=== PATIENT | male | born 1930 | race Caucasian/White ===

== ENCOUNTER 2018-11-10 14:26 | Inpatient (IN) | payer MEDICARE, MEDICAID ==
[~2018-11-10] VITALS: Ht 165.1 cm; Wt 63.5 kg
[~2018-11-10 14:26] MED LIST: ALLO100T PO; CALC0.5C7 PO; ELIQUIS PO; FEBU40TA PO; FURO20TA4 PO; IRON SULFATE PO; OMEP20CA10 PO; PIRO20CA2 PO; SIMV40TA5 PO; TAMS-11 PO; VALS320T2 PO
[2018-11-10 15:58] LABS: EOSINOPHILS % 0.9 % (0.0-5.0); HEMOGLOBIN. 13.4 g/dL (14.0-18.0); LYMPHOCYTES % 14.1 % (20.0-50.0); MEAN CORPUSCULAR HEMOGLOBIN 31.4 pg (28.0-32.0); MEAN CORPUSCULAR VOLUME 91.4 fL (80.0-94.0); MEAN PLATELET VOLUME 7.7 fl (7.4-10.4); MONOCYTES % 12.5 % (2.0-8.0); NEUTROPHILS % 71.5 % (40.0-76.0); PLATELET 243 x1000/uL (130-400); RED BLOOD CELL COUNT 4.27 mill/uL (4.7-6.1)
[2018-11-10 16:02] LABS: CHLORIDE 105 mEq/L (98-107)
[2018-11-10 16:06] LABS: ETHANOL BLOOD 102 mg/dL
[2018-11-10] MEDS ORDERED: ACETAMINOPHEN 500MG TABLET PO ONE (17:45)
[2018-11-11] VITALS (7 sets, daily range): BP systolic 110–191; BP diastolic 64–102
[2018-11-11] MEDS: OMEPRAZOLE 20MG CAPSULE EXTENDED RELEASE PO SCH (06:43)
[2018-11-11] MEDS: NITROGLYCERIN OINT 1GM/INCH UDPKT TD SCH ×3 (06:43→17:59)
[2018-11-11] MEDS: LOSARTAN POTASSIUM 100 MG TABLET PO SCH (08:10)
[2018-11-11] MEDS: TAMSULOSIN HCL 0.4MG SR CAPSULE PO SCH (08:15)
[2018-11-11 09:23] LABS: HEMATOCRIT 39.8 % (42.0-52.0); HEMOGLOBIN 13.5 g/dL (14.0-18.0); MEAN CORPUSCULAR HEMOGLOBIN 30.8 pg (28.0-32.0); PLATELET 245 x1000/uL (130-400); RED BLOOD CELL COUNT 4.38 mill/uL (4.7-6.1); RED CELL DISTRIBUTION WIDTH 15.9 % (11.6-14.6)
[2018-11-11] MEDS ORDERED: ACETAMINOPHEN 650MG SUPP PR PRN (17:45)
[2018-11-11] MEDS ORDERED: LORAZEPAM 2MG/ML CPJ IV PRN (17:45)
[2018-11-11] MEDS ORDERED: ONDANSETRON HCL 4MG/2ML INJ IV PRN (17:45)
[2018-11-11] MEDS ORDERED: ACETAMINOPHEN 325MG TABLET PO PRN (17:45)
[2018-11-11 21:12] LABS: PROTHROMBIN TIME 10.2 sec (9.1-11.1)
[2018-11-11] MEDS: ATORVASTATIN CALCIUM 10MG TABLET PO SCH (21:25)
[2018-11-11] MEDS: MVI, ADULT NO.1 10 ML, FOLIC ACID 1 MG, THIAMINE HCL 100 MG in DEXT 5%/0.45% NACL 1000M... IV SCH ×4 (21:26)
[2018-11-12] VITALS: BP 125/85
[2018-11-12 04:00] VITALS: BP 124/84
[2018-11-12] MEDS: NITROGLYCERIN OINT 1GM/INCH UDPKT TD SCH ×4 (05:28→17:37)
[2018-11-12] MEDS: OMEPRAZOLE 20MG CAPSULE EXTENDED RELEASE PO SCH (05:41)
[2018-11-12 07:31] LABS: HEMATOCRIT 38.6 % (42.0-52.0); MEAN CORPUSCULAR HEMOGLOBIN 30.9 pg (28.0-32.0); PLATELET 256 x1000/uL (130-400); RED BLOOD CELL COUNT 4.19 mill/uL (4.7-6.1); RED CELL DISTRIBUTION WIDTH 16.1 % (11.6-14.6)
[2018-11-12 07:47] LABS: CHLORIDE 106 mEq/L (98-107)
[2018-11-12 08:00] VITALS: BP 138/79
[2018-11-12 08:04] LABS: LDL CHOLESTEROL 116 mg/dL (5-100)
[2018-11-12 08:06] LABS: HDL CHOLESTEROL 44 mg/dL (40-59); T4 FREE 1.35 ng/dL (0.76-1.46); VITAMIN B12 SERUM 367 pg/mL (211-911)
[2018-11-12] MEDS: LOSARTAN POTASSIUM 100 MG TABLET PO SCH (08:46)
[2018-11-12] MEDS: TAMSULOSIN HCL 0.4MG SR CAPSULE PO SCH (08:47)
[2018-11-12 12:00] VITALS: BP 132/51
[2018-11-12] MEDS ORDERED: LACTULOSE 20G/30ML UDC PO SCH (13:45)
[2018-11-12 16:00] VITALS: BP 157/95
[2018-11-12 20:00] VITALS: BP_SYST 125; BP_SYST 129; BP_SYST 149; BP_DIAS 80; BP_DIAS 92; BP_DIAS 97
[2018-11-12] MEDS: ATORVASTATIN CALCIUM 10MG TABLET PO SCH (21:14)
[2018-11-12] MEDS: MVI, ADULT NO.1 10 ML, FOLIC ACID 1 MG, THIAMINE HCL 100 MG in DEXT 5%/0.45% NACL 1000M... IV SCH ×4 (21:15)
[2018-11-13] VITALS: BP 132/96
[2018-11-13] MEDS: NITROGLYCERIN OINT 1GM/INCH UDPKT TD SCH ×3 (00:30→12:01)
[2018-11-13 04:00] VITALS: BP 123/84
[2018-11-13] MEDS: OMEPRAZOLE 20MG CAPSULE EXTENDED RELEASE PO SCH (05:54)
[2018-11-13 06:54] LABS: HEMATOCRIT 38.3 % (42.0-52.0); HEMOGLOBIN 12.8 g/dL (14.0-18.0); MEAN CORPUSCULAR VOLUME 92.9 fL (80.0-94.0); PLATELET 261 x1000/uL (130-400); RED BLOOD CELL COUNT 4.13 mill/uL (4.7-6.1); RED CELL DISTRIBUTION WIDTH 15.6 % (11.6-14.6)
[2018-11-13 08:00] VITALS: BP 169/88
[2018-11-13] MEDS: LOSARTAN POTASSIUM 100 MG TABLET PO SCH (08:18)
[2018-11-13] MEDS: TAMSULOSIN HCL 0.4MG SR CAPSULE PO SCH (08:18)
[2018-11-13 12:03] VITALS: BP 151/87
[2018-11-13 15:40] VITALS: BP 151/87
[2018-11-13 16:03] VITALS: BP 166/81
[2018-11-14] MEDS ORDERED: FAMOTIDINE 20MG TABLET PO SCH (09:00)
== END 2018-11-13 17:10 | disposition home or self-care (01) | DRG 65 ==
LOC: ER 14:56 → 8WST 16:55 → EDBEDREQTM 16:59 → EDBEDREQ 16:59 → ENRESERV 22:42 → 8WST 11-12 18:08
PROVIDERS: ADMIT Internal Medicine; ATTEND Internal Medicine
DX: I63.9 Cerebral infarction, unspecified (principal); K86.1 Other chronic pancreatitis; N17.9 Acute kidney failure, unspecified; E72.20 Disorder of urea cycle metabolism, unspecified; E44.1 Mild protein-calorie malnutrition; F10.10 Alcohol abuse, uncomplicated; I48.91 Unspecified atrial fibrillation; E86.0 Dehydration; H54.61 Unqualified visual loss, right eye, normal vision left eye; D64.9 Anemia, unspecified; E78.5 Hyperlipidemia, unspecified; G62.9 Polyneuropathy, unspecified; I11.9 Hypertensive heart disease without heart failure; M25.78 Osteophyte, vertebrae; M13.861 Other specified arthritis, right knee; M48.02 Spinal stenosis, cervical region; M47.892 Other spondylosis, cervical region; W19.XXXA Unspecified fall, initial encounter; M48.04 Spinal stenosis, thoracic region; N40.0 Benign prostatic hyperplasia without lower urinary tract symptoms; R26.2 Difficulty in walking, not elsewhere classified; Y90.5 Blood alcohol level of 100-119 mg/100 ml; Z86.73 Personal history of transient ischemic attack (TIA), and cerebral infarction without residual deficits; Z91.19 Patient's noncompliance with other medical treatment and regimen; Y93.89 Activity, other specified; Y92.89 Other specified places as the place of occurrence of the external cause; Y99.8 Other external cause status; Z79.899 Other long term (current) drug therapy
CPT/HCPCS: 36415; 70551; 71045; 73560; 80048; 80061; 82140; 82607; 82962; 83036; 83880; 84153; 84439; 84443; 84484; 84550; 85027; 93005; 93306; 93880; 93970; 97116; 97162; 99285; G0482; J3411; J3490; G0103

== ENCOUNTER 2019-10-25 20:45 | Inpatient (IN) | payer MEDICARE, MEDICAID ==
[~2019-10-25] VITALS: Ht 165.1 cm; Wt 63.0 kg
[~2019-10-25 20:45] MED LIST changes: -ELIQUIS PO; -OMEP20CA10 PO; +OMEP20CA5 PO
[2019-10-25 23:06] LABS: CLARITY URINE CLEAR (CLEAR); COLOR URINE YELLOW (YELLOW); KETONES URINE NEGATIVE (NEGATIVE); LEUKOCYTE ESTERASE URINE NEGATIVE (NEGATIVE); NITRITE URINE NEGATIVE (NEGATIVE); OCCULT BLOOD URINE NEGATIVE (NEGATIVE); PH URINE 5.5 (4.5-8.0); PROTEIN URINE 2+ (NEGATIVE); SPECIFIC GRAVITY URINE 1.003 (1.005-1.030); UROBILINOGEN URINE 0.2 E.U./dL (0.2-1.0)
[2019-10-25 23:21] LABS: BASOPHILS % 1.1 % (0.0-2.0); EOSINOPHILS % 3.6 % (0.0-5.0); HEMOGLOBIN. 13.3 g/dL (14.0-18.0); LYMPHOCYTES % 23.3 % (20.0-50.0); MEAN CORPUSCULAR HEMOGLOBIN 32.1 pg (28.0-32.0); MEAN CORPUSCULAR VOLUME 94.2 fL (80.0-94.0); MEAN PLATELET VOLUME 8.1 fl (7.4-10.4); MONOCYTES % 9.4 % (2.0-8.0); NEUTROPHILS % 62.6 % (40.0-76.0); PLATELET 225 x1000/uL (130-400); RED BLOOD CELL COUNT 4.14 mill/uL (4.7-6.1); RED CELL DISTRIBUTION WIDTH 14.6 % (11.6-14.6)
[2019-10-25 23:23] LABS: CHLORIDE 106 mEq/L (98-107)
[2019-10-25] MEDS ORDERED: ASPIRIN 325MG EC TABLET PO ONE (23:45)
[2019-10-26] VITALS (8 sets, daily range): BP systolic 128–182; BP diastolic 59–91
[2019-10-26 08:39] LABS: BASOPHILS % 1.3 % (0.0-2.0); EOSINOPHILS % 4.8 % (0.0-5.0); HEMATOCRIT. 39.6 % (42.0-52.0); HEMOGLOBIN. 13.5 g/dL (14.0-18.0); MEAN CORPUSCULAR VOLUME 93.6 fL (80.0-94.0); MEAN PLATELET VOLUME 8.5 fl (7.4-10.4); MONOCYTES % 10.5 % (2.0-8.0); NEUTROPHILS % 63.4 % (40.0-76.0); PLATELET 235 x1000/uL (130-400); RED BLOOD CELL COUNT 4.23 mill/uL (4.7-6.1); RED CELL DISTRIBUTION WIDTH 14.6 % (11.6-14.6)
[2019-10-26 08:46] LABS: CHLORIDE 111 mEq/L (98-107)
[2019-10-26] MEDS: ENOXAPARIN 40MG/0.4ML SYR SUBCUT SCH (08:56)
[2019-10-26] MEDS: TAMSULOSIN HCL 0.4MG SR CAPSULE PO SCH (08:56)
[2019-10-26] MEDS ORDERED: ACETAMINOPHEN 325MG TABLET PO PRN (10:00)
[2019-10-26] MEDS ORDERED: ONDANSETRON HCL 4MG/2ML INJ IV PRN (10:00)
[2019-10-26] MEDS: CLONIDINE 0.1MG TABLET PO SCH ×3 (11:21→21:00)
[2019-10-26 11:56] LABS: HEPATITIS B SURFACE ANTIGEN NEGATIVE
[2019-10-26 12:26] LABS: HEPATITIS A AB IGM NEGATIVE (NEGATIVE)
[2019-10-26] MEDS ORDERED: CLONIDINE 0.1MG TABLET PO SCH (14:00)
[2019-10-26] MEDS: AMLODIPINE 5MG TABLET PO SCH (21:00)
[2019-10-27] VITALS (8 sets, daily range): BP systolic 104–167; BP diastolic 47–79
[2019-10-27] MEDS: CLONIDINE 0.1MG TABLET PO SCH (05:11)
[2019-10-27 07:11] LABS: BASOPHILS % 2.2 % (0.0-2.0); EOSINOPHILS % 4.8 % (0.0-5.0); HEMATOCRIT. 35.4 % (42.0-52.0); HEMOGLOBIN. 12.2 g/dL (14.0-18.0); MEAN CORPUSCULAR HEMOGLOBIN 32.4 pg (28.0-32.0); MEAN CORPUSCULAR VOLUME 94.1 fL (80.0-94.0); MEAN PLATELET VOLUME 8.7 fl (7.4-10.4); PLATELET 237 x1000/uL (130-400); RED BLOOD CELL COUNT 3.76 mill/uL (4.7-6.1); RED CELL DISTRIBUTION WIDTH 14.9 % (11.6-14.6)
[2019-10-27] MEDS ORDERED: ASPIRIN 81MG TABLET PO SCH (09:00)
[2019-10-27] MEDS: AMLODIPINE 5MG TABLET PO SCH ×2 (09:07→20:59)
[2019-10-27] MEDS: TAMSULOSIN HCL 0.4MG SR CAPSULE PO SCH (09:08)
[2019-10-27] MEDS: ENOXAPARIN 40MG/0.4ML SYR SUBCUT SCH (09:08)
[2019-10-27] MEDS: HYDRALAZINE HCL 50MG TABLET PO SCH ×2 (12:00→21:00)
[2019-10-27] MEDS: SODIUM CHLORIDE 0.45% 1,000 ML IV SCH (13:24)
[2019-10-27 16:47] LABS: T4 FREE 1.11 ng/dL (0.76-1.46)
[2019-10-28 00:25] VITALS: BP 144/69
[2019-10-28 04:00] VITALS: BP 143/65
[2019-10-28] MEDS: SODIUM CHLORIDE 0.45% 1,000 ML IV SCH ×2 (04:51→13:40)
[2019-10-28 07:42] LABS: BASOPHILS % 1.2 % (0.0-2.0); EOSINOPHILS % 5.5 % (0.0-5.0); HEMATOCRIT. 37.1 % (42.0-52.0); HEMOGLOBIN. 12.8 g/dL (14.0-18.0); LYMPHOCYTES % 23.3 % (20.0-50.0); MEAN CORPUSCULAR HEMOGLOBIN 32.2 pg (28.0-32.0); MEAN CORPUSCULAR VOLUME 93.7 fL (80.0-94.0); MEAN PLATELET VOLUME 8.7 fl (7.4-10.4); MONOCYTES % 10.6 % (2.0-8.0); NEUTROPHILS % 59.4 % (40.0-76.0); PLATELET 240 x1000/uL (130-400); RED BLOOD CELL COUNT 3.96 mill/uL (4.7-6.1); RED CELL DISTRIBUTION WIDTH 14.3 % (11.6-14.6)
[2019-10-28 08:28] VITALS: BP 185/91
[2019-10-28] MEDS: TAMSULOSIN HCL 0.4MG SR CAPSULE PO SCH (08:36)
[2019-10-28] MEDS: HYDRALAZINE HCL 50MG TABLET PO SCH ×2 (08:36→21:12)
[2019-10-28] MEDS: AMLODIPINE 5MG TABLET PO SCH ×2 (08:36→21:12)
[2019-10-28] MEDS ORDERED: ENOXAPARIN 30MG/0.3ML SYR SUBCUT SCH (09:00)
[2019-10-28 12:32] VITALS: BP_SYST 128; BP_SYST 185; BP_DIAS 55; BP_DIAS 91
[2019-10-28] MEDS ORDERED: APIX2.5T PO (15:02)
[2019-10-28 16:26] VITALS: BP 116/53
[2019-10-28 18:13] VITALS: BP 128/55
== END 2019-10-28 21:41 | disposition short-term general hospital (02) | DRG 73 ==
LOC: ER 20:45 → ENRESERV 10-26 01:57 → 6WST 10-26 03:50
PROVIDERS: ADMIT Internal Medicine; ATTEND Internal Medicine
DX: G90.8 Other disorders of autonomic nervous system (principal); N17.0 Acute kidney failure with tubular necrosis; E44.0 Moderate protein-calorie malnutrition; I48.21 Permanent atrial fibrillation; K86.1 Other chronic pancreatitis; I69.351 Hemiplegia and hemiparesis following cerebral infarction affecting right dominant side; D64.9 Anemia, unspecified; E78.5 Hyperlipidemia, unspecified; F10.229 Alcohol dependence with intoxication, unspecified; I16.0 Hypertensive urgency; I12.9 Hypertensive chronic kidney disease with stage 1 through stage 4 chronic kidney disease, or unspecified chronic kidney disease; I49.5 Sick sinus syndrome; N40.0 Benign prostatic hyperplasia without lower urinary tract symptoms; E78.00 Pure hypercholesterolemia, unspecified; H54.61 Unqualified visual loss, right eye, normal vision left eye; N18.9 Chronic kidney disease, unspecified; R74.0 Nonspecific elevation of levels of transaminase and lactic acid dehydrogenase [LDH]; R29.6 Repeated falls; Z79.82 Long term (current) use of aspirin; Z79.899 Other long term (current) drug therapy; Z68.23 Body mass index [BMI] 23.0-23.9, adult
CPT/HCPCS: 36415; 71045; 74176; 76700; 80048; 80053; 80076; 81003; 83735; 84439; 84443; 84480; 84484; 85025; 86705; 86709; 86803; 87340; 93005; 93306; 93880; 97162; 99285; J1650

== ENCOUNTER 2019-11-22 17:58 | Inpatient (IN) | payer MEDICARE, MEDICAID ==
[~2019-11-22] VITALS: Ht 162.6 cm; Wt 65.8 kg
[~2019-11-22 17:58] MED LIST changes: -ALLO100T PO; +APIX2.5T PO; -CALC0.5C7 PO; -FEBU40TA PO; -IRON SULFATE PO; -OMEP20CA5 PO; -PIRO20CA2 PO; +SIMV-46 PO; -SIMV40TA5 PO
[2019-11-22] MEDS ORDERED: OXYCODONE HCL/ACETAMINOPHEN 5/325MG TABLET PO ONE (21:15)
[2019-11-22 22:59] LABS: BASOPHILS % 0.8 % (0.0-2.0); EOSINOPHILS % 0.4 % (0.0-5.0); HEMATOCRIT. 35.5 % (42.0-52.0); HEMOGLOBIN. 12.4 g/dL (14.0-18.0); LYMPHOCYTES % 7.6 % (20.0-50.0); MEAN CORPUSCULAR HEMOGLOBIN 32.6 pg (28.0-32.0); MEAN CORPUSCULAR VOLUME 93.2 fL (80.0-94.0); MEAN PLATELET VOLUME 8.3 fl (7.4-10.4); MONOCYTES % 6.1 % (2.0-8.0); NEUTROPHILS % 85.1 % (40.0-76.0); PLATELET 176 x1000/uL (130-400); RED BLOOD CELL COUNT 3.81 mill/uL (4.7-6.1); RED CELL DISTRIBUTION WIDTH 14.5 % (11.6-14.6)
[2019-11-22] MEDS ORDERED: MORPHINE SULFATE 2 MG/ML CPJ (NOT FOR IM USE) IV ONE (23:15)
[2019-11-23] MEDS ORDERED: MORPHINE SULFATE 2 MG/ML CPJ (NOT FOR IM USE) IV ONE (02:30)
[2019-11-23 08:15] VITALS: BP 186/82
[2019-11-23 09:00] VITALS: BP 186/82
[2019-11-23] MEDS ORDERED: NA PHOS,M-B/NA PHOS,DI-BA ENEMA 118ML PR PRN (11:15)
[2019-11-23] MEDS ORDERED: ACETAMINOPHEN 325MG TABLET PO PRN (11:15)
[2019-11-23] MEDS ORDERED: MAGNESIUM/ALUMINUM HYDROXIDE/SIMETHICONE 30ML UDC PO PRN (11:15)
[2019-11-23] MEDS ORDERED: GUAIFENESIN 200MG/10ML SUGAR FREE UDC PO PRN (11:15)
[2019-11-23] MEDS ORDERED: LORAZEPAM 0.5MG TABLET PO PRN (11:15)
[2019-11-23] MEDS ORDERED: DIPHENHYDRAMINE 50MG/ML VIAL IV PRN (11:15)
[2019-11-23] MEDS ORDERED: ONDANSETRON HCL 4MG/2ML INJ IV PRN (11:15)
[2019-11-23] MEDS ORDERED: IPRATROPIUM/ALBUTEROL 0.5-3(2.5)MG/3ML NEB NEB PRN (11:15)
[2019-11-23] MEDS ORDERED: ACETAMINOPHEN 650MG SUPP PR PRN (11:15)
[2019-11-23] MEDS ORDERED: DOCUSATE SODIUM 100MG CAPSULE PO PRN (11:15)
[2019-11-23] MEDS: AMLODIPINE 5MG TABLET PO SCH (11:37)
[2019-11-23 12:00] VITALS: BP 157/96
[2019-11-23 13:38] LABS: PROTHROMBIN TIME 10.7 sec (9.6-11.0)
[2019-11-23] MEDS: CEFTRIAXONE 1 G PREMIX 50 ML IV SCH (13:39)
[2019-11-23] MEDS ORDERED: HYDROCODONE/ACETAMINOPHEN 5/325MG TABLET PO PRN (14:45)
[2019-11-23] MEDS ORDERED: MORPHINE SULFATE 2 MG/ML CPJ (NOT FOR IM USE) IV PRN (14:45)
[2019-11-23] MEDS ORDERED: REGADENOSON 0.4 MG/5 ML IV NR (15:30)
[2019-11-23 16:00] VITALS: BP 150/78
[2019-11-23] MEDS ORDERED: ENOXAPARIN 80MG/0.8ML SYR SUBCUT SCH (16:00)
[2019-11-23 16:01] LABS: HEMATOCRIT 33.3 % (42.0-52.0); HEMOGLOBIN 11.4 g/dL (14.0-18.0); MEAN CORPUSCULAR HEMOGLOBIN 31.7 pg (28.0-32.0); MEAN CORPUSCULAR VOLUME 92.4 fL (80.0-94.0); PLATELET 169 x1000/uL (130-400); RED CELL DISTRIBUTION WIDTH 14.3 % (11.6-14.6)
[2019-11-23 16:05] LABS: CHLORIDE 104 mEq/L (98-107)
[2019-11-23 16:12] LABS: LDL CHOLESTEROL 83 mg/dL (5-100)
[2019-11-23 16:13] LABS: HDL CHOLESTEROL 54 mg/dL (40-59)
[2019-11-23 16:14] LABS: CREATINE KINASE 131 IU/L (39-308)
[2019-11-23 16:17] LABS: CREATINE KINASE MB FRACTION 1.5 ng/mL (0.5-3.6)
[2019-11-23 16:29] LABS: CLARITY URINE CLEAR (CLEAR); COLOR URINE YELLOW (YELLOW); KETONES URINE NEGATIVE (NEGATIVE); LEUKOCYTE ESTERASE URINE NEGATIVE (NEGATIVE); NITRITE URINE NEGATIVE (NEGATIVE); OCCULT BLOOD URINE NEGATIVE (NEGATIVE); PH URINE 6.5 (4.5-8.0); PROTEIN URINE 2+ (NEGATIVE); UROBILINOGEN URINE 0.2 E.U./dL (0.2-1.0)
[2019-11-23] MEDS: HYDROCODONE/ACETAMINOPHEN 5/325MG TABLET PO PRN ×2 (16:39→23:21)
[2019-11-23 17:02] LABS: *AMPHETAMINES SCREEN URINE NEGATIVE (NEGATIVE); *BENZODIAZEPINES SCREEN URINE NEGATIVE (NEGATIVE); *COCAINE SCREEN URINE NEGATIVE (NEGATIVE); CANNABINOID URINE SCREEN NEGATIVE (NEGATIVE); METHADONE URINE SCREEN NEGATIVE (NEGATIVE); OPIATES URINE SCREEN NEGATIVE (NEGATIVE); PHENCYCLIDINE URINE SCREEN NEGATIVE (NEGATIVE)
[2019-11-23 17:03] LABS: *BARBITURATES SCREEN URINE NEGATIVE (NEGATIVE)
[2019-11-23 20:00] VITALS: BP 134/74
[2019-11-23 23:48] LABS: CREATINE KINASE MB FRACTION 1.2 ng/mL (0.5-3.6)
[2019-11-24] VITALS: BP 156/82
[2019-11-24 04:00] VITALS: BP 155/68
[2019-11-24 06:41] LABS: BASOPHILS % 1.1 % (0.0-2.0); EOSINOPHILS % 2.5 % (0.0-5.0); HEMATOCRIT. 31.3 % (42.0-52.0); HEMOGLOBIN. 10.8 g/dL (14.0-18.0); LYMPHOCYTES % 14.1 % (20.0-50.0); MEAN CORPUSCULAR HEMOGLOBIN 32.1 pg (28.0-32.0); MEAN CORPUSCULAR VOLUME 92.9 fL (80.0-94.0); MONOCYTES % 10.6 % (2.0-8.0); NEUTROPHILS % 71.7 % (40.0-76.0); PLATELET 159 x1000/uL (130-400); RED BLOOD CELL COUNT 3.37 mill/uL (4.7-6.1); RED CELL DISTRIBUTION WIDTH 14.7 % (11.6-14.6)
[2019-11-24 08:00] VITALS: BP 139/79
[2019-11-24 08:03] LABS: CHLORIDE 106 mEq/L (98-107)
[2019-11-24 08:14] LABS: T4 FREE 1.44 ng/dL (0.76-1.46)
[2019-11-24] MEDS: AMLODIPINE 5MG TABLET PO SCH (08:37)
[2019-11-24] MEDS ORDERED: REGADENOSON 0.4 MG/5 ML IV ONE (11:21)
[2019-11-24 12:00] VITALS: BP 152/80
[2019-11-24] MEDS: CEFTRIAXONE 1 G PREMIX 50 ML IV SCH (12:34)
[2019-11-24] MEDS: HYDROCODONE/ACETAMINOPHEN 5/325MG TABLET PO PRN ×2 (12:35→18:05)
[2019-11-24 16:00] VITALS: BP 139/77
[2019-11-24 20:00] VITALS: BP 158/79
[2019-11-25] VITALS: BP 165/77
[2019-11-25] MEDS: CLONIDINE 0.1MG TABLET PO PRN (03:08)
[2019-11-25 04:00] VITALS: BP 153/67
[2019-11-25 06:42] LABS: BASOPHILS % 0.8 % (0.0-2.0); EOSINOPHILS % 1.2 % (0.0-5.0); HEMATOCRIT. 31.8 % (42.0-52.0); HEMOGLOBIN. 10.9 g/dL (14.0-18.0); LYMPHOCYTES % 9.4 % (20.0-50.0); MEAN CORPUSCULAR HEMOGLOBIN 31.9 pg (28.0-32.0); MEAN CORPUSCULAR VOLUME 93.1 fL (80.0-94.0); MEAN PLATELET VOLUME 8.8 fl (7.4-10.4); MONOCYTES % 10.8 % (2.0-8.0); NEUTROPHILS % 77.8 % (40.0-76.0); PLATELET 158 x1000/uL (130-400); RED BLOOD CELL COUNT 3.41 mill/uL (4.7-6.1); RED CELL DISTRIBUTION WIDTH 14.7 % (11.6-14.6)
[2019-11-25 06:57] LABS: VITAMIN B12 SERUM 374 pg/mL (211-911)
[2019-11-25] MEDS: HYDROCODONE/ACETAMINOPHEN 5/325MG TABLET PO PRN ×3 (07:57→21:01)
[2019-11-25 08:00] VITALS: BP 119/57
[2019-11-25] MEDS: AMLODIPINE 5MG TABLET PO SCH (08:00)
[2019-11-25 12:00] VITALS: BP 119/57
[2019-11-25] MEDS: CEFTRIAXONE 1 G PREMIX 50 ML IV SCH (13:10)
[2019-11-25 16:00] VITALS: BP 130/70
[2019-11-25 20:00] VITALS: BP 120/68
[2019-11-25] MEDS ORDERED: CHLORHEXIDINE GLUCONATE 4% EXTERNAL USE TOP ONE (20:00)
[2019-11-26] VITALS: BP 126/66
[2019-11-26 04:00] VITALS: BP 137/65
[2019-11-26] MEDS: DEXT 5%/0.45% NACL 1000ML 1,000 ML IV SCH (05:47)
[2019-11-26] MEDS: HYDROCODONE/ACETAMINOPHEN 5/325MG TABLET PO PRN ×3 (05:56→23:57)
[2019-11-26 07:04] LABS: HEMATOCRIT 31.2 % (42.0-52.0); HEMOGLOBIN 10.5 g/dL (14.0-18.0); MEAN CORPUSCULAR HEMOGLOBIN 31.4 pg (28.0-32.0); MEAN CORPUSCULAR VOLUME 93.6 fL (80.0-94.0); PLATELET 174 x1000/uL (130-400); RED BLOOD CELL COUNT 3.33 mill/uL (4.7-6.1); RED CELL DISTRIBUTION WIDTH 14.8 % (11.6-14.6)
[2019-11-26] MEDS ORDERED: NEOSTIGMINE METHYLSULFATE 1MG/ML 10 ML VIAL ONE (07:46)
[2019-11-26] MEDS ORDERED: FENTANYL CITRATE/PF 50MCG/ML 2ML VIAL ONE ×3 (07:46→08:47)
[2019-11-26] MEDS ORDERED: ROCURONIUM BROMIDE 10MG/ML VIAL 5ML IV ONE (07:46)
[2019-11-26] MEDS ORDERED: ONDANSETRON HCL 4MG/2ML INJ ONE (07:47)
[2019-11-26] MEDS ORDERED: LIDOCAINE HCL/PF 1% 10 MG/ML 5ML VIAL ONE (07:47)
[2019-11-26] MEDS ORDERED: MIDAZOLAM HCL 2 MG/2 ML VIAL ONE (07:47)
[2019-11-26] MEDS ORDERED: CEFAZOLIN SODIUM 1000MG/VIAL ONE (07:47)
[2019-11-26] MEDS ORDERED: GLYCOPYRROLATE 0.2 MG/ML 2ML VIAL ONE (07:47)
[2019-11-26] MEDS ORDERED: EPHEDRINE SULFATE 50MG/ML VIAL ONE (07:47)
[2019-11-26] MEDS ORDERED: SUCCINYLCHOLINE CHLORIDE 200MG/10ML IV ONE (07:47)
[2019-11-26] MEDS ORDERED: PHENYLEPHRINE HCL 10 MG/ML 1ML (IV VIAL) IV ONE (07:47)
[2019-11-26] MEDS ORDERED: SODIUM CHLORIDE 0.9% 10ML VIAL ONE (07:47)
[2019-11-26] MEDS ORDERED: PROPOFOL 200MG/20ML VIAL IV ONE (07:47)
[2019-11-26] MEDS ORDERED: METOCLOPRAMIDE HCL 10MG/2ML VIAL ONE (07:47)
[2019-11-26] MEDS: AMLODIPINE 5MG TABLET PO SCH (08:10)
[2019-11-26] MEDS ORDERED: VANCOMYCIN HCL 1 GM/VIAL ONE (08:38)
[2019-11-26] MEDS ORDERED: BUPIVACAINE/EPINEPH/PF 0.25%/0.0005 10ML INJ ONE (09:00)
[2019-11-26] MEDS ORDERED: SKIN ADHESIVE 0.7 GM EA TOP ONE (09:12)
[2019-11-26] MEDS ORDERED: MAGNESIUM HYDROXIDE 400MG/5ML 30ML UDC PO PRN (09:45)
[2019-11-26] MEDS ORDERED: ONDANSETRON HCL 4MG/2ML INJ IV PRN ×2 (09:45→10:00)
[2019-11-26] MEDS ORDERED: MORPHINE SULFATE 4 MG/ML CPJ (NOT FOR IM USE) IV PRN (09:45)
[2019-11-26] MEDS ORDERED: ACETAMINOPHEN 325MG TABLET PO PRN (09:45)
[2019-11-26] MEDS ORDERED: HYDROCODONE/ACETAMINOPHEN 5/325MG TABLET PO PRN (09:45)
[2019-11-26] MEDS ORDERED: SODIUM CHLORIDE 0.9% 1,000 ML IV NR (09:49)
[2019-11-26] MEDS ORDERED: MORPHINE SULFATE 2 MG/ML CPJ (NOT FOR IM USE) IV PRN (10:00)
[2019-11-26] MEDS: HYDROMORPHONE HCL/PF 2MG/ML CPJ IV PRN ×2 (10:32→10:54)
[2019-11-26 12:00] VITALS: BP 154/73
[2019-11-26] MEDS: CEFTRIAXONE 1 G PREMIX 50 ML IV SCH (14:59)
[2019-11-26 16:00] VITALS: BP 93/67
[2019-11-26] MEDS: CEFAZOLIN 2,000 MG in DEXT 5% WATER 100 ML IV SCH ×2 (16:39→23:34)
[2019-11-26] MEDS: DOCUSATE SODIUM 100MG CAPSULE PO SCH (16:44)
[2019-11-26 20:00] VITALS: BP 106/70
[2019-11-27] VITALS: BP 152/91
[2019-11-27] MEDS: DEXT 5%/0.45% NACL 1000ML 1,000 ML IV SCH ×2 (02:50→21:57)
[2019-11-27 04:00] VITALS: BP 123/80
[2019-11-27 05:34] LABS: BASOPHILS % 0.7 % (0.0-2.0); HEMOGLOBIN. 9.5 g/dL (14.0-18.0); LYMPHOCYTES % 8.7 % (20.0-50.0); MEAN CORPUSCULAR HEMOGLOBIN 31.7 pg (28.0-32.0); MEAN CORPUSCULAR VOLUME 93.2 fL (80.0-94.0); MEAN PLATELET VOLUME 8.6 fl (7.4-10.4); MONOCYTES % 12.1 % (2.0-8.0); NEUTROPHILS % 77.5 % (40.0-76.0); PLATELET 189 x1000/uL (130-400); RED CELL DISTRIBUTION WIDTH 14.8 % (11.6-14.6)
[2019-11-27] MEDS: HYDROCODONE/ACETAMINOPHEN 5/325MG TABLET PO PRN (06:44)
[2019-11-27 08:00] VITALS: BP 187/90
[2019-11-27] MEDS ORDERED: ENOXAPARIN 40MG/0.4ML SYR SUBCUT SCH (09:00)
[2019-11-27] MEDS: DOCUSATE SODIUM 100MG CAPSULE PO SCH ×2 (09:48→17:30)
[2019-11-27] MEDS: AMLODIPINE 5MG TABLET PO SCH (09:49)
[2019-11-27 12:00] VITALS: BP 143/84
[2019-11-27] MEDS: CEFTRIAXONE 1 G PREMIX 50 ML IV SCH (13:41)
[2019-11-27 16:00] VITALS: BP 150/84
[2019-11-27 20:00] VITALS: BP 147/82
[2019-11-28] VITALS: BP 163/70
[2019-11-28] MEDS: CLONIDINE 0.1MG TABLET PO PRN (01:14)
[2019-11-28 04:00] VITALS: BP 142/96
[2019-11-28 05:49] LABS: BASOPHILS % 0.7 % (0.0-2.0); EOSINOPHILS % 2.5 % (0.0-5.0); HEMATOCRIT. 27.9 % (42.0-52.0); HEMOGLOBIN. 9.6 g/dL (14.0-18.0); LYMPHOCYTES % 7.4 % (20.0-50.0); MEAN CORPUSCULAR VOLUME 92.8 fL (80.0-94.0); MEAN PLATELET VOLUME 8.2 fl (7.4-10.4); MONOCYTES % 10.4 % (2.0-8.0); PLATELET 232 x1000/uL (130-400); RED BLOOD CELL COUNT 3.01 mill/uL (4.7-6.1); RED CELL DISTRIBUTION WIDTH 14.4 % (11.6-14.6)
[2019-11-28 05:53] LABS: HEMATOCRIT 27.6 % (42.0-52.0); HEMOGLOBIN 9.6 g/dL (14.0-18.0); MEAN CORPUSCULAR VOLUME 92.3 fL (80.0-94.0); PLATELET 225 x1000/uL (130-400); RED CELL DISTRIBUTION WIDTH 14.5 % (11.6-14.6)
[2019-11-28 08:00] VITALS: BP 170/93
[2019-11-28] MEDS: AMLODIPINE 5MG TABLET PO SCH (08:28)
[2019-11-28] MEDS: DOCUSATE SODIUM 100MG CAPSULE PO SCH ×2 (08:28→16:05)
[2019-11-28] MEDS: DEXT 5%/0.45% NACL 1000ML 1,000 ML IV SCH (08:41)
[2019-11-28] MEDS: APIXABAN 5 MG TABLET PO SCH ×2 (11:42→20:09)
[2019-11-28 12:00] VITALS: BP 134/79
[2019-11-28] MEDS: CEFTRIAXONE 1 G PREMIX 50 ML IV SCH (13:11)
[2019-11-28 16:00] VITALS: BP 127/67
[2019-11-28] MEDS: SODIUM CHLORIDE 0.9% 1,000 ML IV SCH (16:05)
[2019-11-28 20:00] VITALS: BP 151/78
[2019-11-29] VITALS (7 sets, daily range): BP systolic 102–164; BP diastolic 60–85
[2019-11-29 06:03] LABS: BASOPHILS % 1.2 % (0.0-2.0); EOSINOPHILS % 5.4 % (0.0-5.0); HEMATOCRIT. 27.1 % (42.0-52.0); HEMOGLOBIN. 9.3 g/dL (14.0-18.0); LYMPHOCYTES % 11.5 % (20.0-50.0); MEAN CORPUSCULAR HEMOGLOBIN 31.8 pg (28.0-32.0); MEAN CORPUSCULAR VOLUME 92.6 fL (80.0-94.0); MEAN PLATELET VOLUME 7.9 fl (7.4-10.4); MONOCYTES % 10.6 % (2.0-8.0); NEUTROPHILS % 71.3 % (40.0-76.0); PLATELET 279 x1000/uL (130-400); RED BLOOD CELL COUNT 2.93 mill/uL (4.7-6.1); RED CELL DISTRIBUTION WIDTH 14.4 % (11.6-14.6)
[2019-11-29] MEDS: MORPHINE SULFATE 2 MG/ML CPJ (NOT FOR IM USE) IV PRN ×2 (06:48→11:50)
[2019-11-29] MEDS: DOCUSATE SODIUM 100MG CAPSULE PO SCH ×2 (08:02→17:12)
[2019-11-29] MEDS: APIXABAN 5 MG TABLET PO SCH ×2 (08:02→20:08)
[2019-11-29] MEDS: AMLODIPINE 5MG TABLET PO SCH (08:03)
[2019-11-29] MEDS: SODIUM CHLORIDE 0.9% 1,000 ML IV SCH (10:45)
[2019-11-29] MEDS: CEFTRIAXONE 1 G PREMIX 50 ML IV SCH (14:05)
[2019-11-29] MEDS ORDERED: APIX5TAB MT (14:29)
[2019-11-29] MEDS ORDERED: HYDR-4001 MT (14:29)
[2019-11-30] VITALS: BP 161/76
[2019-11-30 04:00] VITALS: BP 174/79
[2019-11-30] MEDS: CLONIDINE 0.1MG TABLET PO PRN (04:50)
[2019-11-30 08:00] VITALS: BP 121/58
[2019-11-30] MEDS: SODIUM CHLORIDE 0.9% 1,000 ML IV SCH (08:51)
[2019-11-30] MEDS: APIXABAN 5 MG TABLET PO SCH (08:51)
[2019-11-30] MEDS: AMLODIPINE 5MG TABLET PO SCH (08:52)
[2019-11-30] MEDS: DOCUSATE SODIUM 100MG CAPSULE PO SCH (08:52)
[2019-11-30 09:23] VITALS: BP 121/58
[2019-11-30] MEDS ORDERED: AMLO10TA4 MT (10:37)
[2019-11-30] MEDS ORDERED: HYDR-4135 MT (10:37)
[2019-11-30] MEDS ORDERED: HYDRALAZINE HCL 25MG TABLET PO SCH (14:00)
[2019-11-30] MEDS ORDERED: AMLODIPINE 5MG TABLET PO SCH (21:00)
== END 2019-11-30 10:37 | disposition home health service (06) | DRG 481 ==
LOC: ER 17:58 → 6EST 17:59 → UNDOADMIN 17:59 → 6EST 11-23 01:38 → ENRESERV 11-23 07:13
PROVIDERS: ADMIT Internal Medicine; ATTEND Internal Medicine
PROC: 0QS706Z Reposition Left Upper Femur with Intramedullary Internal Fixation Device, Open Approach (ICD-10-PCS; principal; 2019-11-26)
DX: S72.142A Displaced intertrochanteric fracture of left femur, initial encounter for closed fracture (principal); I48.20 Chronic atrial fibrillation, unspecified; D68.59 Other primary thrombophilia; E87.1 Hypo-osmolality and hyponatremia; N18.9 Chronic kidney disease, unspecified; N40.0 Benign prostatic hyperplasia without lower urinary tract symptoms; I12.9 Hypertensive chronic kidney disease with stage 1 through stage 4 chronic kidney disease, or unspecified chronic kidney disease; L89.90 Pressure ulcer of unspecified site, unspecified stage; M19.90 Unspecified osteoarthritis, unspecified site; E78.5 Hyperlipidemia, unspecified; D72.829 Elevated white blood cell count, unspecified; D63.1 Anemia in chronic kidney disease; G89.29 Other chronic pain; D64.9 Anemia, unspecified; W01.0XXA Fall on same level from slipping, tripping and stumbling without subsequent striking against object, initial encounter; Z86.73 Personal history of transient ischemic attack (TIA), and cerebral infarction without residual deficits; Y93.89 Activity, other specified; Y92.89 Other specified places as the place of occurrence of the external cause; Z79.01 Long term (current) use of anticoagulants; Y99.8 Other external cause status
CPT/HCPCS: 36415; 73502; 73552; 73560; 76000; 78452; 80048; 80053; 80061; 80305; 81003; 82550; 82553; 82607; 82728; 83540; 83550; 83735; 84153; 84439; 84443; 84484; 85025; 85027; 86850; 86900; 93005; 93017; 93970; 96365; 97116; 97162; 97166; 97530; 97535; 99285; A9500; C1713; J0171; J0330; J0690; J0696; J1170; J1650; J2250; J2270; J2370; J2405; J2704; J2710; J2765; J2785; J3010; J3370; J3490; J7030; J7060; G0103